=== PATIENT | female | born 1940 | race Caucasian/White ===

== ENCOUNTER 2017-12-13 08:35 | Emergency (ER) | payer MEDICARE, OTHER ==
[~2017-12-13] VITALS: Ht 165.1 cm; Wt 38.0 kg
[2017-12-13 09:41] LABS: BASOPHILS % (AUTO) 0.5 % (0-1); EOSINOPHILS # (AUTO) 0.1 X10'3 (0-0.9); EOSINOPHILS % (AUTO) 1.7 % (0-6); HEMATOCRIT 40.9 % (35.0-45.0); HEMOGLOBIN 13.9 g/dl (12.0-16.0); LYMPHOCYTES # (AUTO) 0.7 X10'3 (1.1-4.8); MEAN CORPUSCULAR HEMOGLOBIN 33.1 PG (27.0-31.0); MEAN CORPUSCULAR HGB CONC 34.1 % (33.0-36.5); MEAN CORPUSCULAR VOLUME 97.3 FL (78-98); MEAN PLATELET VOLUME 6.1 FL (7.4-10.4); MONOCYTES # (AUTO) 0.5 X10'3 (0-0.9); MONOCYTES % (AUTO) 7.4 % (2-12); NEUTROPHILS # (AUTO) 5.2 X10'3 (1.8-7.7); NEUTROPHILS % (AUTO) 79.4 % (42-75); PLATELET COUNT 366 X10'3 (140-440); RED BLOOD COUNT 4.21 X10'6 (4.20-5.60); RED CELL DISTRIBUTION WIDTH 13.2 % (11.5-14.5); WHITE BLOOD COUNT 6.6 X10'3 (4.5-11.0)
[2017-12-13 09:50] LABS: PROTHROMBIN TIME 10.3 SECONDS (9.0-12.0)
[2017-12-13 10:44] VITALS: BP 149/86
== END 2017-12-13 10:45 | disposition home or self-care (01) ==
LOC: ER 08:36
DX: R04.2 Hemoptysis (principal); Z88.1 Allergy status to other antibiotic agents; Z79.82 Long term (current) use of aspirin
CPT/HCPCS: 36415; 71046; 85025; 85610; 99285

== ENCOUNTER 2022-08-13 17:43 | Inpatient (IN) | payer MEDICARE, MEDICAID ==
[~2022-08-13] VITALS: Ht 162.6 cm; Wt 46.4 kg
[~2022-08-13 17:43] MED LIST: ALBU18HF2 IH; ALPR0.5T9 PO; ESTR1TAB28 PO; FLUT1DIS4 INH; HYDR-3965 PO; LOP25T PO; NORT50CA5 PO; PROC-8 PO; TOPI200T16 PO; TOPI25TA49 PO
[2022-08-13 18:56] LABS: BASOPHILS % (AUTO) 0.5 % (0-1); EOSINOPHILS # (AUTO) 0.1 X10'3 (0-0.9); HEMATOCRIT 39.3 % (35.0-45.0); HEMOGLOBIN 13.7 g/dl (12.0-16.0); LYMPHOCYTES # (AUTO) 1.1 X10'3 (1.1-4.8); LYMPHOCYTES % (AUTO) 15.8 % (21-51); MEAN CORPUSCULAR HEMOGLOBIN 36.2 PG (27.0-31.0); MEAN CORPUSCULAR HGB CONC 34.8 g/dL (33.0-36.5); MEAN CORPUSCULAR VOLUME 103.9 FL (78-98); MEAN PLATELET VOLUME 6.3 FL (7.4-10.4); MONOCYTES # (AUTO) 0.6 X10'3 (0-0.9); MONOCYTES % (AUTO) 9.2 % (2-12); NEUTROPHILS % (AUTO) 73.5 % (42-75); PLATELET COUNT 320 X10'3 (140-440); RED BLOOD COUNT 3.79 X10'6 (4.20-5.60); RED CELL DISTRIBUTION WIDTH 13.7 % (11.5-14.5); WHITE BLOOD COUNT 6.8 X10'3 (4.5-11.0)
[2022-08-13 19:21] LABS: ALANINE AMINOTRANSFERASE 46 U/L (12-78); ALBUMIN 2.8 G/DL (3.4-5.0); ALBUMIN/GLOBULIN RATIO 0.6 (1.1-1.5); ALKALINE PHOSPHATASE 100 IU/L (46-116); ANION GAP 10 (8-16); ASPARTATE AMINO TRANSFERASE 41 U/L (10-37); BILIRUBIN,TOTAL 0.6 MG/DL (0.1-1.0); BLOOD UREA NITROGEN 15 MG/DL (7-18); BUN/CREATININE RATIO 18.3 (6.6-38.0); CALCIUM 9.5 MG/DL (8.5-10.1); CHLORIDE 89 MMOL/L (99-107); CREATININE 0.82 MG/DL (0.40-0.90); GLUCOSE 109 MG/DL (70-104); POTASSIUM 4.4 MMOL/L (3.5-5.1); SODIUM 124 MMOL/L (135-145); TOTAL CARBON DIOXIDE 25.4 MMOL/L (24-32); TOTAL PROTEIN 7.2 G/DL (6.4-8.2); eGFR 67 ML/MIN
[2022-08-14] MEDS ORDERED: diphenhydrAMINE 50 mg/ml inj IV PRN (02:25)
[2022-08-14] MEDS ORDERED: magnesium hydroxide 30ml (MOM) UD suspension PO PRN (02:25)
[2022-08-14] MEDS ORDERED: ondansetron/PF 4mg/2ml inj IV PRN (02:25)
[2022-08-14] MEDS ORDERED: acetaminophen 325mg tablet PO PRN (02:25)
[2022-08-14] MEDS ORDERED: mag hydrox/Alum hydrox/simeth 30ml oral suspension PO PRN (02:25)
[2022-08-14] MEDS ORDERED: bisacodyl 10mg suppository rectal RC PRN (02:25)
[2022-08-14] MEDS ORDERED: ondansetron 4mg rapidly disintigrating tab PO PRN (02:25)
[2022-08-14 03:12] LABS: CLARITY,URINE CLEAR (Clear); COLOR,URINE YELLOW (Yellow); GLUCOSE, URINE NEGATIVE (Neg); KETONES,URINE NEGATIVE (Neg); LEUKOCYTE ESTERASE ,URINE NEGATIVE (Neg); NITRITES, URINE NEGATIVE (Neg); OCCULT BLOOD,URINE SMALL (Neg); PROTEIN,URINE NEGATIVE (Neg); UROBILINOGEN,URINE 0.2 E.U/dL (0.2-1.0)
[2022-08-14 03:15] LABS: UA COLLECTION TYPE NON-SPECIFIED
[2022-08-14 03:23] LABS: BACTERIA,URINE NONE SEEN /HPF (Neg); MUCUS STRANDS FEW /LPF (Neg); RBC,URINE 0-2 /HPF (0-2); SQUAMOUS EPITHELIAL CELL,UR FEW /LPF (FEW); WBC,URINE 0-4 /HPF (0-4)
[2022-08-14] MEDS ORDERED: hyDRALAzine 10mg tablet PO SCH (04:00)
[2022-08-14] MEDS: hydrALAZINE 20mg/ml inj. IV PRN ×2 (04:03→09:01)
[2022-08-14] MEDS: HYDROcodone/acetaminophen 5mg/325mg tablet PO PRN ×3 (04:06→13:17)
[2022-08-14] MEDS ORDERED: ALPR0.5T9 PO (04:48)
[2022-08-14] MEDS ORDERED: PROC10TA10 PO (04:49)
[2022-08-14] MEDS ORDERED: FURO20TA4 PO (04:52)
[2022-08-14] MEDS ORDERED: TOP100T PO (04:56)
[2022-08-14] MEDS ORDERED: LOSA50TA64 PO (04:59)
[2022-08-14 06:05] LABS: APTT 28 SECONDS (22-32)
[2022-08-14 06:15] LABS: MAGNESIUM 1.6 MG/DL (1.5-2.4); PHOSPHORUS 3.4 MG/DL (2.3-4.5)
[2022-08-14] MEDS: docusate sod 100mg capsule PO SCH ×2 (08:00→19:24)
[2022-08-14] MEDS: heparin, porcine 5000 units/ml vial SQ SCH ×2 (08:59→19:25)
[2022-08-14] MEDS: furosemide 10 MG/1 ML 10ml inj IV SCH ×2 (08:59→19:25)
[2022-08-14] MEDS: diphenhydrAMINE 25mg capsule PO PRN (09:01)
[2022-08-14] MEDS: pantoprazole 40mg Tablet.DR PO SCH (09:02)
--- NOTE | 2022-08-14 09:20 | NUR ---
Pt has been feeling SOB and tired at this time. Pt states that she has chronic back pain and takes norco at home. Pt has stable VS at this time and is resting well. no distress noted at this time.
--- NOTE | 2022-08-14 16:56 | NUR ---
Patient in room ED 9. I have received report from Kasey [facility] ED and had the opportunity to ask questions and assume patient care.
--- NOTE | 2022-08-14 18:09 | NUR ---
Problems reprioritized. Patient report given, questions answered & plan of care reviewed with rudy MCRAE.
--- NOTE | 2022-08-14 18:20 | NUR ---
Patient in room [facility] 359. I have received report from THOR Quintana and had the opportunity to ask questions and assume patient care.
[2022-08-14] MEDS: temazepam 15mg capsule PO PRN (21:07)
[2022-08-14 22:00] VITALS: BP 156/53
[2022-08-14 23:15] VITALS: BP 157/79
--- NOTE | 2022-08-14 23:30 | NUR ---
pt moved to room closer to nursing station. settled in and gone to sleep. bed alarm and tabs in use.
--- NOTE | 2022-08-15 00:15 | NUR ---
notified that pt had fall at approximately 2310. pt found on floor at bedside. small skin tears to L mid arm, L leg, and upper spine. pt assisted back to bed. dressings applied. pt appears to be conversing fine. no changes in mentality from previously. pt moved to a room closer to the nursing station. bed alarms in place. notified. stated to keep an eye on her. pt now going back to sleep. Dr. Miranda is MD notified.
[2022-08-15] MEDS: acetaminophen 325mg tablet PO PRN (05:59)
[2022-08-15 06:00] VITALS: BP 165/74
--- NOTE | 2022-08-15 06:34 | NUR ---
Problems reprioritized. Patient report given, questions answered & plan of care reviewed with THOR Lehman.
[2022-08-15 06:45] LABS: BASOPHILS # (AUTO) 0.1 X10'3 (0-0.2); BASOPHILS % (AUTO) 0.7 % (0-1); EOSINOPHILS # (AUTO) 0.1 X10'3 (0-0.9); EOSINOPHILS % (AUTO) 1.1 % (0-6); HEMATOCRIT 40.8 % (35.0-45.0); LYMPHOCYTES # (AUTO) 0.9 X10'3 (1.1-4.8); LYMPHOCYTES % (AUTO) 12.4 % (21-51); MEAN CORPUSCULAR HEMOGLOBIN 35.6 PG (27.0-31.0); MEAN CORPUSCULAR HGB CONC 34.4 g/dL (33.0-36.5); MEAN CORPUSCULAR VOLUME 103.7 FL (78-98); MEAN PLATELET VOLUME 6.3 FL (7.4-10.4); MONOCYTES # (AUTO) 0.8 X10'3 (0-0.9); MONOCYTES % (AUTO) 10.4 % (2-12); NEUTROPHILS # (AUTO) 5.6 X10'3 (1.8-7.7); NEUTROPHILS % (AUTO) 75.4 % (42-75); PLATELET COUNT 297 X10'3 (140-440); RED BLOOD COUNT 3.94 X10'6 (4.20-5.60); RED CELL DISTRIBUTION WIDTH 13.7 % (11.5-14.5); WHITE BLOOD COUNT 7.4 X10'3 (4.5-11.0)
--- NOTE | 2022-08-15 06:48 | NUR ---
Patient in room [facility] 359. I have received report from Marion and had the opportunity to ask questions and assume patient care.
[2022-08-15 07:01] LABS: ALANINE AMINOTRANSFERASE 39 U/L (12-78); ALBUMIN 2.3 G/DL (3.4-5.0); ALBUMIN/GLOBULIN RATIO 0.6 (1.1-1.5); ALKALINE PHOSPHATASE 82 IU/L (46-116); ANION GAP 9 (8-16); ASPARTATE AMINO TRANSFERASE 36 U/L (10-37); BILIRUBIN,TOTAL 0.6 MG/DL (0.1-1.0); BLOOD UREA NITROGEN 18 MG/DL (7-18); BUN/CREATININE RATIO 21.2 (6.6-38.0); CALCIUM 8.5 MG/DL (8.5-10.1); CHLORIDE 94 MMOL/L (99-107); CREATININE 0.85 MG/DL (0.40-0.90); GLUCOSE 85 MG/DL (70-104); POTASSIUM 3.3 MMOL/L (3.5-5.1); SODIUM 132 MMOL/L (135-145); TOTAL CARBON DIOXIDE 28.8 MMOL/L (24-32); TOTAL PROTEIN 6.2 G/DL (6.4-8.2); eGFR 64 ML/MIN
[2022-08-15] MEDS: docusate sod 100mg capsule PO SCH ×2 (07:39→20:28)
[2022-08-15] MEDS: pantoprazole 40mg Tablet.DR PO SCH (07:39)
[2022-08-15] MEDS: heparin, porcine 5000 units/ml vial SQ SCH ×2 (07:41→20:29)
[2022-08-15] MEDS: furosemide 10 MG/1 ML 10ml inj IV SCH ×2 (08:18→20:29)
[2022-08-15] MEDS ORDERED: potassium Cl 20 mEq SR tablet PO ONE (09:30)
[2022-08-15 10:00] VITALS: BP 147/64
[2022-08-15] MEDS ORDERED: ALPRAZolam 0.5mg tablet PO PRN (12:20)
--- NOTE | 2022-08-15 12:59 | NUR ---
Student documentation: I have reviewed and agree with all interventions, medication administration per hospital policy and assessments performed and documented by .
[2022-08-15] MEDS: proCHLORperazine 10mg tablet PO SCH ×2 (13:00→21:00)
--- NOTE | 2022-08-15 14:21 | NUR ---
Noted pt BMI 17.5 pending scaled wt this admit per EMR. Pt current reported wt stable w/ prior admit wt hx, has no wounds, trace feet edema, and reports no decrease in intake or wt loss per EMR. Pt likely maintains stable undeweight status at baseline. Noted pt on Na-restricted diet admit DX hyponatremia serum Na 132mmol/L up from 124mmol/L initially per EMR. RD d/w RN regarding liberalizing to regular diet given age, DX, and BMI if MD agreeable. Addendum: 08/15/22 at [address] Amended: Links added.
[2022-08-15] MEDS: diphenhydrAMINE 25mg capsule PO PRN (15:06)
--- NOTE | 2022-08-15 16:19 | NUR ---
PAGER ID: [phone] MESSAGE: RE: Stephen in [id number], pt states she takes the topiramate 25 mg at night, and the 100 mg in the am, current order 100 mg BID, please advise if change needed Fallon
[2022-08-15 18:00] VITALS: BP 155/80
--- NOTE | 2022-08-15 18:21 | NUR ---
Problems reprioritized. Patient report given, questions answered & plan of care reviewed with Cherelle Velasquez
[2022-08-15] MEDS: topiramate 100mg tablet PO SCH (20:28)
[2022-08-15] MEDS: nortriptyline 25mg capsule PO SCH (20:29)
[2022-08-15] MEDS: temazepam 15mg capsule PO PRN (21:45)
[2022-08-15 22:00] VITALS: BP 165/73
[2022-08-16] MEDS: acetaminophen 325mg tablet PO PRN (04:38)
[2022-08-16 06:00] VITALS: BP 145/67
--- NOTE | 2022-08-16 06:06 | NUR ---
Problems reprioritized. Patient report given, questions answered & plan of care reviewed with THOR John.
[2022-08-16 06:24] LABS: BASOPHILS # (AUTO) 0.1 X10'3 (0-0.2); BASOPHILS % (AUTO) 0.7 % (0-1); EOSINOPHILS # (AUTO) 0.1 X10'3 (0-0.9); EOSINOPHILS % (AUTO) 1.7 % (0-6); HEMATOCRIT 39.5 % (35.0-45.0); HEMOGLOBIN 13.9 g/dl (12.0-16.0); LYMPHOCYTES # (AUTO) 1.2 X10'3 (1.1-4.8); MEAN CORPUSCULAR HEMOGLOBIN 36.5 PG (27.0-31.0); MEAN CORPUSCULAR HGB CONC 35.3 g/dL (33.0-36.5); MEAN CORPUSCULAR VOLUME 103.6 FL (78-98); MEAN PLATELET VOLUME 6.1 FL (7.4-10.4); MONOCYTES # (AUTO) 0.7 X10'3 (0-0.9); MONOCYTES % (AUTO) 10.9 % (2-12); NEUTROPHILS # (AUTO) 4.7 X10'3 (1.8-7.7); NEUTROPHILS % (AUTO) 69.7 % (42-75); PLATELET COUNT 270 X10'3 (140-440); RED BLOOD COUNT 3.81 X10'6 (4.20-5.60); WHITE BLOOD COUNT 6.8 X10'3 (4.5-11.0)
[2022-08-16 06:39] LABS: ALANINE AMINOTRANSFERASE 31 U/L (12-78); ALBUMIN 2.1 G/DL (3.4-5.0); ALBUMIN/GLOBULIN RATIO 0.5 (1.1-1.5); ALKALINE PHOSPHATASE 75 IU/L (46-116); ANION GAP 6 (8-16); ASPARTATE AMINO TRANSFERASE 30 U/L (10-37); BILIRUBIN,TOTAL 0.6 MG/DL (0.1-1.0); BLOOD UREA NITROGEN 16 MG/DL (7-18); BUN/CREATININE RATIO 20.3 (6.6-38.0); CALCIUM 8.3 MG/DL (8.5-10.1); CHLORIDE 96 MMOL/L (99-107); CREATININE 0.79 MG/DL (0.40-0.90); GLUCOSE 99 MG/DL (70-104); POTASSIUM 3.5 MMOL/L (3.5-5.1); SODIUM 133 MMOL/L (135-145); TOTAL CARBON DIOXIDE 31.3 MMOL/L (24-32); TOTAL PROTEIN 6.2 G/DL (6.4-8.2); eGFR 70 ML/MIN
[2022-08-16] MEDS: estradiol 1mg tablet PO SCH (08:00)
[2022-08-16] MEDS: pantoprazole 40mg Tablet.DR PO SCH (08:01)
[2022-08-16] MEDS: docusate sod 100mg capsule PO SCH ×2 (08:01→20:14)
[2022-08-16] MEDS: topiramate 100mg tablet PO SCH ×2 (08:01→20:14)
[2022-08-16] MEDS: losartan 50mg tablet PO SCH (08:01)
[2022-08-16] MEDS: heparin, porcine 5000 units/ml vial SQ SCH ×2 (08:02→20:15)
[2022-08-16] MEDS: proCHLORperazine 10mg tablet PO SCH ×3 (08:02→20:14)
[2022-08-16] MEDS: furosemide 10 MG/1 ML 10ml inj IV SCH ×2 (08:02→20:15)
--- NOTE | 2022-08-16 08:19 | NUR ---
TYLENOL 650MG UNADMINISTERED BY ME. PREV NURSE ADMINISTERED ON Nov, HOWEVER PATIENT NEVER TOOK, FOUND AT BEDSIDE THIS AM
[2022-08-16] MEDS: HYDROcodone/acetaminophen 5mg/325mg tablet PO PRN ×2 (09:56→21:51)
[2022-08-16] MEDS: morphine 2 MG/ML inj. syringe IV PRN ×2 (11:07→22:01)
[2022-08-16 12:00] VITALS: BP 151/78
[2022-08-16] MEDS: levoTHYROXINE 25mcg tablet PO SCH (13:36)
--- NOTE | 2022-08-16 15:00 | NUR ---
I have reviewed and agree with all interventions, assessments performed and documented by WILLIAM [facility].
--- NOTE | 2022-08-16 15:22 | NUR ---
REPORT GIVEN TO AMPARO [facility]
[2022-08-16 19:51] VITALS: BP 144/59
[2022-08-16] MEDS: nortriptyline 25mg capsule PO SCH (20:14)
[2022-08-16 22:06] VITALS: BP 138/51
--- NOTE | 2022-08-16 23:54 | NUR ---
Problems reprioritized. Patient report given, questions answered & plan of care reviewed with THOR Yu.
--- NOTE | 2022-08-17 | NUR ---
Patient in room [facility] 358. I have received report from MISSAEL and had the opportunity to ask questions and assume patient care. PT RESTING AT THIS TIME.
[2022-08-17] MEDS: acetaminophen 325mg tablet PO PRN ×3 (02:19→15:54)
[2022-08-17 06:00] VITALS: BP 104/59
[2022-08-17 06:50] LABS: BASOPHILS # (AUTO) 0.1 X10'3 (0-0.2); BASOPHILS % (AUTO) 1.1 % (0-1); EOSINOPHILS # (AUTO) 0.2 X10'3 (0-0.9); EOSINOPHILS % (AUTO) 3.4 % (0-6); HEMATOCRIT 38.2 % (35.0-45.0); HEMOGLOBIN 12.8 g/dl (12.0-16.0); LYMPHOCYTES # (AUTO) 0.8 X10'3 (1.1-4.8); LYMPHOCYTES % (AUTO) 14.7 % (21-51); MEAN CORPUSCULAR HEMOGLOBIN 35.1 PG (27.0-31.0); MEAN CORPUSCULAR HGB CONC 33.4 g/dL (33.0-36.5); MEAN PLATELET VOLUME 6.3 FL (7.4-10.4); MONOCYTES # (AUTO) 0.6 X10'3 (0-0.9); NEUTROPHILS # (AUTO) 3.7 X10'3 (1.8-7.7); NEUTROPHILS % (AUTO) 68.8 % (42-75); PLATELET COUNT 241 X10'3 (140-440); RED BLOOD COUNT 3.64 X10'6 (4.20-5.60); WHITE BLOOD COUNT 5.3 X10'3 (4.5-11.0)
[2022-08-17 06:53] LABS: ALANINE AMINOTRANSFERASE 25 U/L (12-78); ALBUMIN 2.1 G/DL (3.4-5.0); ALBUMIN/GLOBULIN RATIO 0.6 (1.1-1.5); ALKALINE PHOSPHATASE 67 IU/L (46-116); ASPARTATE AMINO TRANSFERASE 31 U/L (10-37); BILIRUBIN,TOTAL 0.6 MG/DL (0.1-1.0); BLOOD UREA NITROGEN 19 MG/DL (7-18); BUN/CREATININE RATIO 24.1 (6.6-38.0); CALCIUM 8.4 MG/DL (8.5-10.1); CREATININE 0.79 MG/DL (0.40-0.90); GLUCOSE 80 MG/DL (70-104); TOTAL CARBON DIOXIDE 32.7 MMOL/L (24-32); TOTAL PROTEIN 5.8 G/DL (6.4-8.2); eGFR 70 ML/MIN
[2022-08-17 07:00] LABS: ANION GAP 3 (8-16); CHLORIDE 96 MMOL/L (99-107); SODIUM 132 MMOL/L (135-145)
--- NOTE | 2022-08-17 07:27 | NUR ---
CRITICAL POTASSIUM 3.0, DR ANGELES AWAITING CALL BACK PAGER ID: [phone] MESSAGE: ASHLEIGH [id number]: CRITICAL POTSSIUM 3.0, CAN I GET AN ORDER FOR THE PROTOCOL? THANK YOU RONALDO [phone]
[2022-08-17] MEDS: proCHLORperazine 10mg tablet PO SCH ×3 (08:00→19:41)
[2022-08-17] MEDS: levoTHYROXINE 25mcg tablet PO SCH (08:03)
[2022-08-17] MEDS: pantoprazole 40mg Tablet.DR PO SCH (08:04)
[2022-08-17] MEDS: furosemide 10 MG/1 ML 10ml inj IV SCH ×2 (08:04→19:42)
[2022-08-17] MEDS: topiramate 100mg tablet PO SCH ×2 (08:15→19:40)
[2022-08-17] MEDS: estradiol 1mg tablet PO SCH (08:15)
[2022-08-17] MEDS: losartan 50mg tablet PO SCH (08:15)
[2022-08-17] MEDS: docusate sod 100mg capsule PO SCH ×2 (08:15→19:40)
[2022-08-17] MEDS: heparin, porcine 5000 units/ml vial SQ SCH ×2 (09:18→19:40)
--- NOTE | 2022-08-17 09:30 | NUR ---
Patients here does not want patient to go to [facility] states there were 3 patients to a room and patients in beds in the hallway. Flor disability case manager aware would like her to go to [facility].
--- NOTE | 2022-08-17 09:31 | NUR ---
Bladder scanned patient and shows to have 1067ml's in bladder.
--- NOTE | 2022-08-17 09:33 | NUR ---
PAGER ID: [phone] MESSAGE: Manju Surg [phone] Re: [id number] [place] Patient unable to void bladder scan shows 1067ml's in bladder also K+3.0 how would you like me to replace?
[2022-08-17 10:00] VITALS: BP 132/57
[2022-08-17] MEDS ORDERED: potassium Cl 20 mEq SR tablet PO ONE (10:30)
--- NOTE | 2022-08-17 16:01 | NUR ---
PAGER ID: [phone] MESSAGE: Manju Surg [phone] Re: [id number] [place] Bladder scan showed 463ml's in bladder please call
[2022-08-17] MEDS ORDERED: LIDOcaine 2% 10ml TOPICAL JELLY (Urojet) TP ONE (16:10)
[2022-08-17 18:00] VITALS: BP 141/63
--- NOTE | 2022-08-17 18:30 | NUR ---
Assumed care of pt after report from Manju MCR[facility].
--- NOTE | 2022-08-17 18:55 | NUR ---
Problems reprioritized. Patient report given, questions answered & plan of care reviewed with Nettie MCRAE.
[2022-08-17] MEDS: nortriptyline 25mg capsule PO SCH (19:54)
[2022-08-17] MEDS: morphine 2 MG/ML inj. syringe IV PRN (21:38)
[2022-08-17 22:00] VITALS: BP 140/60
[2022-08-18] MEDS: acetaminophen 325mg tablet PO PRN ×2 (03:47→10:13)
[2022-08-18] MEDS: morphine 2 MG/ML inj. syringe IV PRN (04:09)
[2022-08-18 05:39] LABS: BASOPHILS % (AUTO) 0.9 % (0-1); EOSINOPHILS # (AUTO) 0.2 X10'3 (0-0.9); EOSINOPHILS % (AUTO) 3.9 % (0-6); HEMATOCRIT 37.1 % (35.0-45.0); HEMOGLOBIN 12.6 g/dl (12.0-16.0); MEAN CORPUSCULAR VOLUME 105.7 FL (78-98); MEAN PLATELET VOLUME 6.2 FL (7.4-10.4); MONOCYTES # (AUTO) 0.5 X10'3 (0-0.9); MONOCYTES % (AUTO) 9.8 % (2-12); NEUTROPHILS % (AUTO) 63.4 % (42-75); PLATELET COUNT 240 X10'3 (140-440); RED BLOOD COUNT 3.51 X10'6 (4.20-5.60); RED CELL DISTRIBUTION WIDTH 13.8 % (11.5-14.5); WHITE BLOOD COUNT 4.7 X10'3 (4.5-11.0)
[2022-08-18 05:53] LABS: ALANINE AMINOTRANSFERASE 26 U/L (12-78); ALBUMIN/GLOBULIN RATIO 0.5 (1.1-1.5); ALKALINE PHOSPHATASE 65 IU/L (46-116); ASPARTATE AMINO TRANSFERASE 34 U/L (10-37); BILIRUBIN,TOTAL 0.6 MG/DL (0.1-1.0); BLOOD UREA NITROGEN 19 MG/DL (7-18); BUN/CREATININE RATIO 22.1 (6.6-38.0); CALCIUM 8.2 MG/DL (8.5-10.1); CREATININE 0.86 MG/DL (0.40-0.90); GLUCOSE 85 MG/DL (70-104); TOTAL CARBON DIOXIDE 32.8 MMOL/L (24-32); eGFR 63 ML/MIN
[2022-08-18 06:00] VITALS: BP 126/59
[2022-08-18 06:12] LABS: ANION GAP 3 (8-16); CHLORIDE 97 MMOL/L (99-107); POTASSIUM 3.5 MMOL/L (3.5-5.1); SODIUM 133 MMOL/L (135-145)
--- NOTE | 2022-08-18 06:34 | NUR ---
Patient in room [facility] 358. I have received report from [facility] and had the opportunity to ask questions and assume patient care.
--- NOTE | 2022-08-18 06:40 | NUR ---
Report to Fallon MCRAE.
[2022-08-18] MEDS: proCHLORperazine 10mg tablet PO SCH (08:00)
[2022-08-18] MEDS: losartan 50mg tablet PO SCH (09:05)
[2022-08-18] MEDS: docusate sod 100mg capsule PO SCH (09:05)
[2022-08-18] MEDS: furosemide 10 MG/1 ML 10ml inj IV SCH (09:05)
[2022-08-18] MEDS: estradiol 1mg tablet PO SCH (09:05)
[2022-08-18] MEDS: topiramate 100mg tablet PO SCH (09:06)
[2022-08-18] MEDS: heparin, porcine 5000 units/ml vial SQ SCH (09:06)
[2022-08-18] MEDS: levoTHYROXINE 25mcg tablet PO SCH (09:06)
[2022-08-18] MEDS: pantoprazole 40mg Tablet.DR PO SCH (09:07)
[2022-08-18 10:00] VITALS: BP 137/60
--- NOTE | 2022-08-18 12:35 | NUR ---
Problems reprioritized. Patient report given, questions answered & plan of care reviewed with Elena at [facility].
--- NOTE | 2022-08-25 11:21 | NUR ---
Case Management DC follow up: Patient DC to [facility].
== END 2022-08-18 13:45 | DRG 291 ==
LOC: ER 17:44 → ED HOLD 08-14 02:28 → SUR 3N 08-14 17:17
PROVIDERS: ADMIT Family Medicine; ATTEND Internal Medicine
DX: I11.0 Hypertensive heart disease with heart failure (principal); E43 Unspecified severe protein-calorie malnutrition; I50.33 Acute on chronic diastolic (congestive) heart failure; I16.1 Hypertensive emergency; E87.1 Hypo-osmolality and hyponatremia; Z68.1 Body mass index [BMI] 19.9 or less, adult; I31.39 Other pericardial effusion (noninflammatory); Z20.822 Contact with and (suspected) exposure to COVID-19; E03.9 Hypothyroidism, unspecified; E87.6 Hypokalemia; R03.0 Elevated blood-pressure reading, without diagnosis of hypertension; G89.4 Chronic pain syndrome; R33.9 Retention of urine, unspecified; I08.0 Rheumatic disorders of both mitral and aortic valves; K44.9 Diaphragmatic hernia without obstruction or gangrene; R91.1 Solitary pulmonary nodule; J44.9 Chronic obstructive pulmonary disease, unspecified; K76.89 Other specified diseases of liver; Z79.899 Other long term (current) drug therapy; Z86.73 Personal history of transient ischemic attack (TIA), and cerebral infarction without residual deficits; Z87.891 Personal history of nicotine dependence; Z98.82 Breast implant status; Z88.8 Allergy status to other drugs, medicaments and biological substances; Z79.890 Hormone replacement therapy
CPT/HCPCS: 36415; 71045; 71250; 80053; 81001; 83735; 83880; 84100; 84443; 84484; 85025; 85610; 85730; 87081; 87811; 93005; 93308; 97116; 97161; 97530; 99285; A4615; A6212; A6213; A6223; G0378; J0360; J1644; J1940; J2270; Q0163; Q0164

== ENCOUNTER 2022-09-21 01:18 | Emergency (ER) | payer MEDICARE, MEDICAID ==
[~2022-09-21] VITALS: Ht 162.6 cm; Wt 45.3 kg
[~2022-09-21 01:18] MED LIST changes: -ALBU18HF2 IH; -FLUT1DIS4 INH; +FURO20TA4 PO; -LOP25T PO; +LOSA50TA64 PO; -PROC-8 PO; +PROC10TA10 PO; +TOP100T PO; -TOPI200T16 PO; -TOPI25TA49 PO
[2022-09-21 02:50] LABS: CLARITY,URINE CLOUDY (Clear); COLOR,URINE YELLOW (Yellow); GLUCOSE, URINE NEGATIVE (Neg); KETONES,URINE NEGATIVE (Neg); LEUKOCYTE ESTERASE ,URINE SMALL (Neg); NITRITES, URINE NEGATIVE (Neg); OCCULT BLOOD,URINE MODERATE (Neg); PH,URINE 6.5 (4.8-8.0); PROTEIN,URINE TRACE mg/dl (Neg); UA COLLECTION TYPE STRAIGHT CATH; UROBILINOGEN,URINE 0.2 E.U/dL (0.2-1.0)
[2022-09-21 03:04] VITALS: BP 143/69
[2022-09-21 03:35] LABS: BACTERIA,URINE 4+ /HPF (Neg); WBC,URINE 20-30 /HPF (0-4)
[2022-09-21 03:36] LABS: MUCUS STRANDS NONE SEEN /LPF (Neg); SQUAMOUS EPITHELIAL CELL,UR FEW /LPF (FEW); WBC CLUMPS,URINE FEW /HPF (NEGATIVE)
== END 2022-09-21 03:05 | disposition home or self-care (01) ==
LOC: ER 01:18
DX: R33.9 Retention of urine, unspecified (principal); Z88.1 Allergy status to other antibiotic agents; Z88.5 Allergy status to narcotic agent; Z88.8 Allergy status to other drugs, medicaments and biological substances
CPT/HCPCS: 81001; 87088; 99283; J7030